=== PATIENT | male | born 1945 | race Caucasian/White ===

== ENCOUNTER 2020-10-25 10:43 | Outpatient (REF) | payer MEDICARE, OTHER, SELFPAY ==
--- NOTE | 2020-10-25 15:09 | MHC.AU.AHA ---
Adult Audiological Evaluation Date of Visit: 10/25/20 Reason for Appointment: History of mild to severe sensorineural hearing loss bilaterally. Patient questions if there has been a change in his hearing since his last evaluation in 2019. History of noise exposure. Previous Hearing Test Results: At this clinic on 01/04/2019- Mild to severe sensorineural hearing loss bilaterally Ear History: Recent Ear Drainage: None Reported Recent Ear Pain: None Reported Recent Ear Infections: None Reported History: Yes Hearing Instrument History- Right Ear: Flatbed Truck Driver: [employer] Model: ePod Solaro V50-312 Serial Number: [id number] Battery Size: 312 Repair Warranty: Loss and Damage Warranty: Dispensed By: [facility] Date of Fittin02/20/2015 Hearing Instrument History- Left Ear: Flatbed Truck Driver: [employer] Model: ePod Solaro V50-312 Serial Number: [id number] Battery Size: 312 Warranty: Loss and Damage Warranty: Dispensed By: [facility] Date of Fittin02/20/2015 Otoscopy: Right Ear: Unremarkable Left Ear: Unremarkable Tympanometry: Tympanometry performed due to: Right Ear: Reduced Middle Ear Compliance (Type As) Left Ear: Reduced Middle Ear Compliance (Type As) Hearing Evaluation: Transducer(s) Used: Insert Earphones Method: Conventional Audiometry Stimuli Used: Pure Tones Right Ear: Description of Hearing: Mild to severe sensorineural hearing loss Left Ear: Description of Hearing: Mild to severe sensorineural hearing loss Speech Recognition Threshold (SRT): Method Used: Recorded Lists Stimuli Used: Spondee Words Right Ear: 60 dBHL Left Ear: 60 dBHL Word Discrimination: Method: Recorded Lists Word Lists Used: W-22 Right Ear: 76% at 90 dBHL Left Ear: 72% at 90 dBHL Most Comfortable Level (MCL): Right Ear: 90 dBHL Left Ear: 90 dBHL Comparison: Compared to the most recent evaluation: Hearing is stable. Recommendations: Audiological re-evaluation in one year. Patient reports that on the left hearing aid, the hinge where the battery door attaches has broken. The hearing aid still works; however, the patient has to carefully insert/remove the entire battery/door every time he uses it. There is a large risk the battery could fall out when in use. It cannot be repaired in office and is no longer under warranty. Hearing aid maintenance performed. Vents were partially clogged- debris was suctioned out. No programming changes made to the hearing aids today. [facility] If [facility] is unable to [facility], we can discuss the possibility of new hearing aids or sending the left hearing aid for [id number] repair. Diagnosis: Primary Diagnosis: H90.3 Bilateral Sensorineural Hearing Loss Signature: Provider: Hernan Kidd, CCC-A
== END 2020-10-25 10:44 | disposition home or self-care (01) ==
LOC: HO.SH 10:43
PROVIDERS: Visit Provider Internal Medicine
DX: H90.3 Sensorineural hearing loss, bilateral (principal)
CPT/HCPCS: 92557; 92567